=== PATIENT | female | born 1975 | race Caucasian/White ===

== ENCOUNTER 2021-11-12 23:05 | Emergency (ER) | payer OTHER ==
[~2021-11-12] VITALS: Ht 167.6 cm; Wt 90.7 kg
[2021-11-13] MEDS ORDERED: NORFLEX100MG PO (03:43)
[2021-11-13] MEDS ORDERED: KETO10TA2 PO (03:43)
== END 2021-11-13 03:51 ==
LOC: ER 23:05
DX: M62.838 Other muscle spasm (principal); M62.830 Muscle spasm of back

== ENCOUNTER 2024-10-31 14:35 | Emergency (ER) | payer OTHER ==
[~2024-10-31] VITALS: Ht 167.6 cm; Wt 88.5 kg
[~2024-10-31 14:35] MED LIST: KETO10TA2 PO; NORFLEX100MG PO
[2024-10-31] MEDS ORDERED: OMEPRAZOLE40 MG (16:26)
[2024-10-31] MEDS ORDERED: FAMOTIDINE/PF 20 MG in 0.9 % SODIUM CHLORIDE 8 ML IV PUSH STA (17:07)
[2024-10-31] MEDS ORDERED: KETOROLAC TROMETHAMINE 30 MG VIAL IV ONE (17:15)
[2024-10-31] MEDS ORDERED: ONDANSETRON HCL 2 MG/ML VIAL IV ONE (17:15)
[2024-10-31] MEDS ORDERED: 0.9 % SODIUM CHLORIDE 1,000 ML IV SCH (17:15)
[2024-10-31 17:26] LABS: BASO % 0.4 % (0.1-1.2); EOS # 0.42 (0.04-0.54); EOS % 5.8 % (0.7-7.0); LYMPH # 2.31 (1.18-3.74); LYMPH % 32.0 % (19.3-53.1); MEAN PLATELET VOLUME 10.80 fl (9.4-12.4); MONO # 0.35 (0.24-0.82); MONO % 4.8 % (4.7-12.5); NEUT # 4.11 (1.56-6.13); NEUT % 56.9 % (34.0-71.1); RED CELL DISTRIBUTION WIDTH 13.5 % (11.6-14.4)
[2024-10-31 17:54] LABS: ALT/SGPT 27 U/L (12-78); AST/SGOT 20 U/L (15-37); BILIRUBIN TOTAL 0.37 mg/dL (0.3-1.2); BILIRUBIN,CONJUGATED < 0.10 mg/dL (0.0-0.2); BUN CREA RATIO 23 (7.0-25.0); CREATININE SERUM 0.64 mg/dL (0.55-1.02); GFR 98.22; GLOBULINA 3.8 G/DL (2.4-3.5); GLUCOSE FASTING 94 mg/dL (65-100); OSMOLALITY SERUM 280 MOSM/KG (275-295)
[2024-10-31] MEDS ORDERED: CARAFATE1 GM PO (19:23)
[2024-10-31] MEDS ORDERED: PROTONIX40 MG PO (19:23)
== END 2024-10-31 19:39 | disposition home or self-care (01) ==
LOC: ER 14:44
PROVIDERS: General Practice
DX: R10.11 Right upper quadrant pain (principal); D18.09 Hemangioma of other sites